=== PATIENT | male | born 1970 | race Two or more races ===

== ENCOUNTER 2021-10-28 00:11 | Emergency (ER) | payer SELFPAY ==
[~2021-10-28] VITALS: Ht 170.2 cm; Wt 68.0 kg
[2021-10-28 01:06] VITALS: BP 136/87
[2021-10-28] MEDS ORDERED: TETANUS-DIPTH-ACEL PERTUSSIS 0.5ML SYR Tdap IM ONE (01:15)
[2021-10-28] MEDS ORDERED: CEPH500C PO (01:29)
[2021-10-28] MEDS ORDERED: IBUP800T27 PO (01:29)
== END 2021-10-28 01:41 | disposition home or self-care (01) ==
LOC: ER 00:11
DX: S61.412A Laceration without foreign body of left hand, initial encounter (principal); W26.8XXA Contact with other sharp object(s), not elsewhere classified, initial encounter; Y93.89 Activity, other specified; Y92.89 Other specified places as the place of occurrence of the external cause; Y99.8 Other external cause status
CPT/HCPCS: 12001; 90471; 90715